=== PATIENT | female | born 1990 | race African-American/Black ===

== ENCOUNTER 2017-09-12 18:06 | Observation (INO) | payer MEDICAID ==
[~2017-09-12] VITALS: Ht 175.3 cm; Wt 117.9 kg
[~2017-09-12 18:06] MED LIST: IBUP-2048; INSULIN LANTUS; TIZA-19; TRAM50TA73
[2017-09-12] MEDS ORDERED: INSULIN SQ (18:59)
[2017-09-12] MEDS ORDERED: OMEP20CA10 PO (19:02)
[2017-09-12] MEDS ORDERED: METO-293 PO (19:02)
[2017-09-12] MEDS ORDERED: DEXTROSE 50% WATER 50ML SYRINGE IV PRN (19:15)
[2017-09-12] MEDS: INSULIN LISPRO 100 UNITS/ML SUBCUT SCH (20:01)
[2017-09-12 20:21] LABS: BASOPHILS % 1.1 % (0.0-2.0); EOSINOPHILS % 0.6 % (0.0-5.0); HEMATOCRIT. 33.3 % (36.0-48.0); HEMOGLOBIN. 10.9 g/dL (12.0-16.0); LYMPHOCYTES % 24.3 % (20.0-50.0); MEAN CORPUSCULAR VOLUME 88.2 fL (81.0-99.0); MEAN PLATELET VOLUME 8.2 fl (7.4-10.4); MONOCYTES % 6.5 % (2.0-8.0); NEUTROPHILS % 67.5 % (40.0-76.0); PLATELET 336 x1000/uL (130-400); RED BLOOD CELL COUNT 3.77 mill/uL (4.2-5.4); RED CELL DISTRIBUTION WIDTH 12.1 % (11.6-14.6)
[2017-09-12 20:32] LABS: CARBON DIOXIDE 26 mEq/L (21-32); CHLORIDE 102 mEq/L (98-107)
[2017-09-12] MEDS ORDERED: BLOOD SUGAR DIAGNOSTIC STRIP TEST SCH (21:00)
[2017-09-12] MEDS: AMLODIPINE 2.5MG TABLET PO SCH (21:46)
[2017-09-12] MEDS: INSULIN NPH (HUMULIN-N) 100 UNITS/ML 3ML VIAL SUBCUT SCH (21:53)
[2017-09-12 23:35] VITALS: BP 131/62
[2017-09-13 04:47] VITALS: BP 99/63
[2017-09-13] MEDS ORDERED: OMEPRAZOLE 20MG CAPSULE EXTENDED RELEASE PO SCH (07:00)
[2017-09-13] MEDS ORDERED: INSULIN LISPRO 100 UNITS/ML SUBCUT ONE (07:45)
[2017-09-13] MEDS: INSULIN NPH (HUMULIN-N) 100 UNITS/ML 3ML VIAL SUBCUT SCH ×2 (08:09→21:07)
[2017-09-13 08:41] VITALS: BP 135/84
[2017-09-13] MEDS ORDERED: AMLODIPINE 2.5MG TABLET PO SCH (09:00)
[2017-09-13] MEDS: AMLODIPINE 2.5MG TABLET PO SCH (09:04)
[2017-09-13] MEDS: DOCUSATE SODIUM 100MG CAPSULE PO SCH ×2 (09:05→21:05)
[2017-09-13] MEDS: INSULIN LISPRO 100 UNITS/ML SUBCUT SCH ×2 (12:52→17:46)
[2017-09-13 16:30] VITALS: BP 118/68
[2017-09-13 19:54] VITALS: BP 123/64
== END 2017-09-13 21:30 | disposition home or self-care (01) ==
LOC: L&D 18:06 → 7EST PP/OB 23:30
PROVIDERS: ADMIT Acupuncturist; ATTEND Specialist
DX: O24.013 Pre-existing type 1 diabetes mellitus, in pregnancy, third trimester (principal); O10.913 Unspecified pre-existing hypertension complicating pregnancy, third trimester; O99.343 Other mental disorders complicating pregnancy, third trimester; F31.9 Bipolar disorder, unspecified; Z3A.30 30 weeks gestation of pregnancy
CPT/HCPCS: 36415; 59025; 80048; 80076; 82575; 82962; 84156; 85025; 96372; 99281; G0378; J1815

== ENCOUNTER 2017-10-18 14:10 | Observation (INO) | payer MEDICAID ==
[~2017-10-18] VITALS: Ht 175.3 cm; Wt 124.3 kg
[~2017-10-18 14:10] MED LIST changes: +INSULIN SQ; +METO-293 PO; +OMEP20CA10 PO; -TRAM50TA73; +TRAM50TA94
[2017-10-18] MEDS ORDERED: SODIUM CHLORIDE 0.9% 1,000 ML IV SCH ×2 (14:27→14:45)
[2017-10-18] MEDS ORDERED: PREN1TAB78 PO (14:39)
[2017-10-18] MEDS ORDERED: AMLO2.5T45 PO (14:41)
[2017-10-18 15:09] LABS: CLARITY URINE CLEAR (CLEAR); COLOR URINE YELLOW (YELLOW); KETONES URINE NEGATIVE (NEGATIVE); LEUKOCYTE ESTERASE URINE NEGATIVE (NEGATIVE); NITRITE URINE NEGATIVE (NEGATIVE); OCCULT BLOOD URINE TRACE (NEGATIVE); PROTEIN URINE 2+ (NEGATIVE)
[2017-10-18 15:11] LABS: BASOPHILS % 0.8 % (0.0-2.0); EOSINOPHILS % 0.4 % (0.0-5.0); HEMOGLOBIN. 11.7 g/dL (12.0-16.0); LYMPHOCYTES % 21.9 % (20.0-50.0); MEAN CORPUSCULAR HEMOGLOBIN 28.8 pg (28.0-32.0); MEAN CORPUSCULAR VOLUME 88.5 fL (81.0-99.0); MEAN PLATELET VOLUME 8.7 fl (7.4-10.4); MONOCYTES % 6.2 % (2.0-8.0); NEUTROPHILS % 70.7 % (40.0-76.0); PLATELET 373 x1000/uL (130-400); RED BLOOD CELL COUNT 4.07 mill/uL (4.2-5.4); RED CELL DISTRIBUTION WIDTH 12.8 % (11.6-14.6)
[2017-10-18 15:16] LABS: CHLORIDE 103 mEq/L (98-107)
[2017-10-18 15:18] LABS: INR 0.9; PARTIAL THROMBOPLASTIN TIME 25.2 sec (23.4-31.0)
[2017-10-18 15:24] LABS: CARBON DIOXIDE 26 mEq/L (21-32)
[2017-10-18] MEDS ORDERED: INSLIS SUBCUT (16:05)
[2017-10-18] MEDS ORDERED: INSU100V3 SUBCUT (16:05)
== END 2017-10-18 16:55 | disposition home or self-care (01) ==
LOC: L&D 14:10
PROVIDERS: ADMIT Specialist; ATTEND Specialist
DX: Z34.93 Encounter for supervision of normal pregnancy, unspecified, third trimester (principal); Z3A.35 35 weeks gestation of pregnancy
CPT/HCPCS: 36415; 76815; 76818; 80053; 81001; 82962; 84550; 85025; 85384; 85610; 85730; 96360; 96361; 99281; G0378; J7030

== ENCOUNTER 2017-10-25 12:38 | Observation (INO) | payer MEDICAID ==
[~2017-10-25] VITALS: Ht 177.8 cm; Wt 124.3 kg
[~2017-10-25 12:38] MED LIST changes: +AMLO2.5T45 PO; -IBUP-2048; +INSLIS SUBCUT; +INSU100V3 SUBCUT; -INSULIN LANTUS; -INSULIN SQ; +PREN1TAB78 PO; -TIZA-19; -TRAM50TA94
== END 2017-10-25 13:50 | disposition home or self-care (01) ==
LOC: L&D 12:38
PROVIDERS: ADMIT Specialist; ATTEND Specialist
DX: Z34.93 Encounter for supervision of normal pregnancy, unspecified, third trimester (principal); Z3A.36 36 weeks gestation of pregnancy
CPT/HCPCS: 76815; 76818; G0378; 99281

== ENCOUNTER 2017-10-28 18:02 | Observation (INO) | payer MEDICAID ==
[~2017-10-28] VITALS: Ht 177.8 cm; Wt 124.3 kg
[2017-10-28 19:43] LABS: BASOPHILS % 0.2 % (0.0-2.0); EOSINOPHILS % 0.4 % (0.0-5.0); HEMATOCRIT. 32.7 % (36.0-48.0); HEMOGLOBIN. 10.6 g/dL (12.0-16.0); MEAN CORPUSCULAR HEMOGLOBIN 28.5 pg (28.0-32.0); MEAN CORPUSCULAR VOLUME 88.3 fL (81.0-99.0); MEAN PLATELET VOLUME 8.5 fl (7.4-10.4); NEUTROPHILS % 67.4 % (40.0-76.0); PLATELET 345 x1000/uL (130-400); RED BLOOD CELL COUNT 3.71 mill/uL (4.2-5.4); RED CELL DISTRIBUTION WIDTH 13.1 % (11.6-14.6)
[2017-10-28 19:52] LABS: CARBON DIOXIDE 25 mEq/L (21-32); CHLORIDE 104 mEq/L (98-107)
[2017-10-28 19:53] LABS: CLARITY URINE CLEAR (CLEAR); COLOR URINE YELLOW (YELLOW); KETONES URINE NEGATIVE (NEGATIVE); LEUKOCYTE ESTERASE URINE NEGATIVE (NEGATIVE); NITRITE URINE NEGATIVE (NEGATIVE); OCCULT BLOOD URINE TRACE (NEGATIVE); PROTEIN URINE 2+ (NEGATIVE); SPECIFIC GRAVITY URINE 1.016 (1.005-1.030)
[2017-10-28 19:57] LABS: D-DIMER 1.89 mg/L FEU (<0.50); INR 0.9; PROTHROMBIN TIME 9.1 sec (9.4-11.6)
[2017-10-28] MEDS ORDERED: INSULIN REGULAR (HUMULIN R) 300UNITS/3ML SUBCUT NR (20:45)
[2017-10-28] MEDS ORDERED: LABETALOL HCL 100MG TABLET PO NR (20:45)
== END 2017-10-28 22:32 | disposition home or self-care (01) ==
LOC: L&D 18:02
PROVIDERS: ADMIT Obstetrics & Gynecology; ATTEND Obstetrics & Gynecology
DX: O26.893 Other specified pregnancy related conditions, third trimester (principal); M79.89 Other specified soft tissue disorders; R03.0 Elevated blood-pressure reading, without diagnosis of hypertension; Z3A.37 37 weeks gestation of pregnancy
CPT/HCPCS: 36415; 80053; 81001; 82962; 84550; 85025; 85379; 85384; 85610; 85730; 96372; 99281; G0378; J1815

== ENCOUNTER 2017-11-03 13:41 | Inpatient (IN) | payer MEDICAID ==
[~2017-11-03] VITALS: Ht 177.8 cm; Wt 80.3 kg
[~2017-11-03 13:41] MED LIST changes: -METO-293 PO; -OMEP20CA10 PO
[2017-11-03] MEDS ORDERED: LACTATED RINGERS 1,000 ML IV SCH ×2 (14:22→15:30)
[2017-11-03] MEDS ORDERED: DEXT 5%/LR + PITOCIN 20UNITS/L 1,000 ML IV SCH ×2 (14:22→18:59)
[2017-11-03] MEDS ORDERED: METHYLERGONOVINE MALEATE 0.2 MG/ML IM PRN (14:30)
[2017-11-03] MEDS ORDERED: NALOXONE HCL 0.4 MG/ML 1ML VIAL IM PRN (14:30)
[2017-11-03] MEDS ORDERED: MISOPROSTOL 100MCG TABLET VG SCH (14:30)
[2017-11-03] MEDS ORDERED: CARBOPROST TROMETHAMINE 250 MCG/ML AMPUL IM PRN (14:30)
[2017-11-03] MEDS ORDERED: EPHEDRINE SULFATE 50MG/ML VIAL ONE (14:33)
[2017-11-03] MEDS ORDERED: PHENYLEPHRINE HCL 10 MG/ML 1ML (IV VIAL) IV ONE (14:33)
[2017-11-03] MEDS ORDERED: CEFAZOLIN 2000MG PREMIX 50 ML IV ONE (14:33)
[2017-11-03] MEDS ORDERED: FENTANYL CITRATE/PF 50MCG/ML 2ML VIAL ONE (14:33)
[2017-11-03] MEDS ORDERED: MORPHINE SULFATE/PF 1MG/ML 10ML AMP ONE (14:33)
[2017-11-03] MEDS ORDERED: OXYTOCIN 10 UNITS/ML 1ML ONE (14:34)
[2017-11-03] MEDS ORDERED: ONDANSETRON HCL 4MG/2ML VIAL ONE (14:34)
[2017-11-03] MEDS ORDERED: SODIUM CHLORIDE 0.9% 10ML VIAL ONE (14:37)
[2017-11-03] MEDS ORDERED: GLYCOPYRROLATE 0.2 MG/ML 2ML VIAL ONE (14:37)
[2017-11-03] MEDS ORDERED: CITRIC ACID/SODIUM CITRATE SOLN 30ML UDC PO ONE (14:45)
[2017-11-03 15:22] LABS: CLARITY URINE CLOUDY (CLEAR); COLOR URINE YELLOW (YELLOW); KETONES URINE NEGATIVE (NEGATIVE); LEUKOCYTE ESTERASE URINE 1+ (NEGATIVE); NITRITE URINE NEGATIVE (NEGATIVE); OCCULT BLOOD URINE TRACE (NEGATIVE); PH URINE 5.5 (4.5-8.0); PROTEIN URINE 2+ (NEGATIVE); SPECIFIC GRAVITY URINE 1.018 (1.005-1.030)
[2017-11-03 15:22] LABS: BASOPHILS % 0.6 % (0.0-2.0); EOSINOPHILS % 0.5 % (0.0-5.0); HEMATOCRIT. 34.4 % (36.0-48.0); HEMOGLOBIN. 11.1 g/dL (12.0-16.0); LYMPHOCYTES % 24.4 % (20.0-50.0); MEAN CORPUSCULAR VOLUME 87.2 fL (81.0-99.0); MEAN PLATELET VOLUME 8.7 fl (7.4-10.4); MONOCYTES % 6.5 % (2.0-8.0); PLATELET 384 x1000/uL (130-400); RED BLOOD CELL COUNT 3.95 mill/uL (4.2-5.4); RED CELL DISTRIBUTION WIDTH 12.7 % (11.6-14.6)
[2017-11-03 15:35] LABS: D-DIMER 1.5 mg/L FEU (<0.50); INR 0.9; PARTIAL THROMBOPLASTIN TIME 25.4 sec (23.4-31.0); PROTHROMBIN TIME 9.2 sec (9.4-11.6)
[2017-11-03 15:36] LABS: *AMPHETAMINES SCREEN URINE NEGATIVE (NEGATIVE); *BARBITURATES SCREEN URINE NEGATIVE (NEGATIVE); *BENZODIAZEPINES SCREEN URINE NEGATIVE (NEGATIVE); *COCAINE SCREEN URINE NEGATIVE (NEGATIVE); CANNABINOID URINE SCREEN NEGATIVE (NEGATIVE); METHADONE URINE SCREEN NEGATIVE (NEGATIVE); OPIATES URINE SCREEN NEGATIVE (NEGATIVE); PHENCYCLIDINE URINE SCREEN NEGATIVE (NEGATIVE)
[2017-11-03 15:46] LABS: CARBON DIOXIDE 22 mEq/L (21-32); CHLORIDE 106 mEq/L (98-107)
[2017-11-03 16:06] LABS: RUBELLA IGG 26.9 IU/mL (4.99-10)
[2017-11-03 16:07] LABS: HEPATITIS B SURFACE ANTIGEN NEGATIVE
[2017-11-03] MEDS ORDERED: BUTORPHANOL TARTRATE 2 MG/ML VIAL IV PRN (17:15)
[2017-11-03] MEDS ORDERED: NALOXONE HCL 0.4 MG/ML 1ML VIAL IV PRN (17:15)
[2017-11-03] MEDS ORDERED: MIDAZOLAM HCL 2 MG/2 ML VIAL ONE (18:13)
[2017-11-03] MEDS ORDERED: BISACODYL 10MG SUPP PR PRN (19:00)
[2017-11-03] MEDS ORDERED: ONDANSETRON HCL 4MG/2ML VIAL IV PRN (19:00)
[2017-11-03] MEDS ORDERED: HYDROCODONE/ACETAMINOPHEN 5/325MG TABLET PO PRN ×2 (19:00)
[2017-11-03] MEDS ORDERED: DIPHENHYDRAMINE 25MG CAPSULE PO PRN (19:00)
[2017-11-03] MEDS ORDERED: LANOLIN OINT 0.25 GM TUBE TOP PRN (19:00)
[2017-11-03 21:00] VITALS: BP 148/79
[2017-11-03 21:30] VITALS: BP 138/72
[2017-11-03 22:00] VITALS: BP 137/78
[2017-11-03 23:00] VITALS: BP 138/78
[2017-11-03] MEDS: DIPHENHYDRAMINE 50MG/ML VIAL IV PRN (23:02)
[2017-11-04 03:57] VITALS: BP 174/81
[2017-11-04 06:02] VITALS: BP 133/67
[2017-11-04] MEDS: DIPHENHYDRAMINE 50MG/ML VIAL IV PRN (06:05)
[2017-11-04 07:15] LABS: BASOPHILS % 0.4 % (0.0-2.0); EOSINOPHILS % 0.2 % (0.0-5.0); HEMATOCRIT. 31.3 % (36.0-48.0); HEMOGLOBIN. 10.3 g/dL (12.0-16.0); LYMPHOCYTES % 14.2 % (20.0-50.0); MEAN CORPUSCULAR HEMOGLOBIN 28.7 pg (28.0-32.0); MEAN CORPUSCULAR VOLUME 86.9 fL (81.0-99.0); MEAN PLATELET VOLUME 8.6 fl (7.4-10.4); MONOCYTES % 7.8 % (2.0-8.0); NEUTROPHILS % 77.4 % (40.0-76.0); PLATELET 358 x1000/uL (130-400); RED CELL DISTRIBUTION WIDTH 12.5 % (11.6-14.6)
[2017-11-04 07:34] VITALS: BP 130/71
[2017-11-04] MEDS: MAGNESIUM/ALUMINUM HYDROXIDE/SIMETHICONE 30ML UDC PO SCH ×4 (08:43→21:00)
[2017-11-04] MEDS: PRENATAL VIT/FE FUMARATE/FA TABLET PO SCH (08:46)
[2017-11-04] MEDS: SIMETHICONE 80MG TABLET CHEW PO SCH ×4 (08:46→20:56)
[2017-11-04] MEDS: AMLODIPINE 2.5MG TABLET PO SCH (08:47)
[2017-11-04] MEDS: FERROUS SULFATE 325MG TABLET PO SCH ×2 (12:58→17:42)
[2017-11-04] MEDS: IBUPROFEN 400MG TABLET PO PRN ×2 (15:27→21:27)
[2017-11-04] MEDS: INSULIN LISPRO 100 UNITS/ML SUBCUT SCH ×2 (16:15→19:43)
[2017-11-04 16:28] VITALS: BP 108/56
[2017-11-04 20:00] VITALS: BP 131/70
[2017-11-04] MEDS: DOCUSATE SODIUM 100MG CAPSULE PO SCH ×2 (20:56→21:00)
[2017-11-04] MEDS: INSULIN NPH (HUMULIN-N) 100 UNITS/ML 3ML VIAL SUBCUT SCH (21:26)
[2017-11-05] MEDS: IBUPROFEN 400MG TABLET PO PRN ×3 (06:05→21:18)
[2017-11-05 06:15] VITALS: BP 148/72
[2017-11-05 08:12] VITALS: BP 113/67
[2017-11-05] MEDS: PRENATAL VIT/FE FUMARATE/FA TABLET PO SCH (08:34)
[2017-11-05] MEDS: FERROUS SULFATE 325MG TABLET PO SCH ×3 (08:34→16:48)
[2017-11-05] MEDS: MAGNESIUM/ALUMINUM HYDROXIDE/SIMETHICONE 30ML UDC PO SCH ×4 (08:35→21:17)
[2017-11-05] MEDS: AMLODIPINE 2.5MG TABLET PO SCH (08:35)
[2017-11-05] MEDS: SIMETHICONE 80MG TABLET CHEW PO SCH ×5 (08:35→21:17)
[2017-11-05] MEDS: INSULIN LISPRO 100 UNITS/ML SUBCUT SCH ×4 (08:36→19:51)
[2017-11-05] MEDS: INSULIN NPH (HUMULIN-N) 100 UNITS/ML 3ML VIAL SUBCUT SCH ×3 (08:37→21:13)
[2017-11-05] MEDS ORDERED: MEDROXYPROGESTERONE ACETATE 150MG/ML VIAL IM NR (11:00)
[2017-11-05] MEDS ORDERED: INFLUENZA VIRUS VACCINE 0.5ML SYR IM ONE (12:00)
[2017-11-05] MEDS ORDERED: TETANUS, DIPHTHERIA, PERTUSSIS VAC/PF 0.5ML (>7YR OLD) IM ONE (12:00)
[2017-11-05 12:44] VITALS: BP 123/59
[2017-11-05] MEDS: DOCUSATE SODIUM 100MG CAPSULE PO SCH (21:17)
[2017-11-05 23:54] VITALS: BP 132/70
[2017-11-06] MEDS: IBUPROFEN 400MG TABLET PO PRN ×2 (06:12→11:55)
[2017-11-06 06:17] VITALS: BP 127/70
[2017-11-06 08:00] VITALS: BP 140/77
[2017-11-06] MEDS: PRENATAL VIT/FE FUMARATE/FA TABLET PO SCH ×2 (09:00→10:42)
[2017-11-06] MEDS: SIMETHICONE 80MG TABLET CHEW PO SCH ×2 (09:00→10:42)
[2017-11-06] MEDS: MAGNESIUM/ALUMINUM HYDROXIDE/SIMETHICONE 30ML UDC PO SCH ×2 (09:00→10:41)
[2017-11-06] MEDS: INSULIN LISPRO 100 UNITS/ML SUBCUT SCH (09:00)
[2017-11-06] MEDS: INSULIN NPH (HUMULIN-N) 100 UNITS/ML 3ML VIAL SUBCUT SCH ×2 (09:00→10:47)
[2017-11-06] MEDS: AMLODIPINE 2.5MG TABLET PO SCH ×2 (09:00→10:41)
[2017-11-06] MEDS: FERROUS SULFATE 325MG TABLET PO SCH ×2 (09:00→10:42)
[2017-11-06 11:55] VITALS: BP 140/77
[2017-11-06] MEDS ORDERED: TETANUS, DIPHTHERIA, PERTUSSIS VAC/PF 0.5ML (>7YR OLD) IM ONE (12:30)
== END 2017-11-06 12:00 | disposition home or self-care (01) | DRG 540 ==
LOC: L&D 13:41 → OBSVTOIN 13:41 → L&D 14:32 → 7EST PP/OB 21:21
PROVIDERS: ADMIT Specialist; ATTEND Specialist
PROC: 10D00Z1 Extraction of Products of Conception, Low, Open Approach (ICD-10-PCS; principal; 2017-11-03 18:50)
DX: O76 Abnormality in fetal heart rate and rhythm complicating labor and delivery (principal); O24.92 Unspecified diabetes mellitus in childbirth; O98.32 Other infections with a predominantly sexual mode of transmission complicating childbirth; O16.4 Unspecified maternal hypertension, complicating childbirth; D64.9 Anemia, unspecified; E11.9 Type 2 diabetes mellitus without complications; A63.0 Anogenital (venereal) warts; K21.9 Gastro-esophageal reflux disease without esophagitis; O99.02 Anemia complicating childbirth; O99.62 Diseases of the digestive system complicating childbirth; Z37.0 Single live birth; Z3A.37 37 weeks gestation of pregnancy
CPT/HCPCS: 36415; 80053; 80305; 81001; 82962; 84550; 85025; 85379; 85384; 85610; 85730; 86592; 86703; 86762; 86850; 86900; 87340; 88307; 90686; 90715; 99281; A4216; J0171; J0690; J1050; J1200; J1815; J2250; J2274; J2370; J2405; J2590; J3010; J3490; J7120; Q0163; A4315